=== PATIENT | female | born 1965 | race Caucasian/White ===

== ENCOUNTER 2016-05-15 15:13 | Emergency (ER) | payer OTHER ==
[2016-05-15 15:10] LABS: BASOPHIL# 0.1 X10e3 (0-0.3); BASOPHIL% 0.5 % (0-2.5); EOSINOPHIL% 0.3 % (0.0-7.0); HEMATOCRIT 41.1 % (35.0-45.0); HEMOGLOBIN 13.3 gm/dL (12.0-16.0); LYMPHOCYTE# 4.3 X10e3 (1.0-3.5); LYMPHOCYTE% 28.7 % (17.0-45.0); MEAN CELL VOLUME 82.2 FL (83-96); MEAN CORPUSCULAR HEMOGLOBIN 26.6 PG (28-34); MEAN CORPUSCULAR HGB CONC 32.4 g/dL (30-36); MEAN PLATELET VOLUME 9.2 FL (6.5-11.5); MONOCYTE# 0.8 X10e3 (0-1.0); MONOCYTE% 5.1 % (3.0-12.0); NEUTROPHIL# 9.7 X10e3 (1.5-7.1); NEUTROPHIL% 65.4 % (40-75); PLATELET COUNT 514 X10e3 (140-420); RED CELL DISTRIBUTION WIDTH 14.8 % (11.0-15.5); WHITE BLOOD COUNT 14.9 X10e3 (4.0-10.5)
[~2016-05-15 15:13] MED LIST: ALBUTEROL20 ml INH; AMITRIPTYLINE100 MG PO; ASPIRIN EC81 M1 PO; BACLOFEN10 MG PO; CELEBREX PO; CELECOXIB100 MG PO; DULOXETINE HCL60 M1 PO; DULOXETINE HCL60 MG PO; FLEXERIL10 M1 PO; FLEXERIL10 MG PO; FLOVENT DI50 MCG/DIS INH; FUROSEMIDE40 MG PO; GLIPIZIDE10 MG PO; HYDROCHLOROTHIA25 MG PO; HYDROXYZINE HCL50 MG PO; KEPPRA1000 MG PO; LASIX20 MG PO; LEVOTHYROXINE50 MCG PO; LIORESAL10 MG PO; LYRICA100 MG PO; METOPROLOL SUCC25 MG PO; ORUDIS75 M1 PO; PEN-VEE K PO; POTASSIUM CHLO10 ME1 PO; PRAVASTATIN SOD40 MG PO; PREDNISONE PO; PREMPRO 0.1 TAB 0.62 PO; PREMPRO 0.625-21 TAB PO; PRILOSEC20 M1 PO; PROZAC PO; RA CALCIUM PO; SYMBICORT INH; SYNTHROID PO; TRAMADOL HCL50 M1 PO; ULTRAM PO; VENTOLIN5 MG/ML INH; VISTARIL50 MG PO; ZYRTEC10 M2 PO; [UNRECOGNIZED DRUG - OTHER] PO; [UNRECOGNIZED DRUG - OTHER] PO
[2016-05-15 15:43] LABS: ALBUMIN SERUM 4.1 g/dL (3.5-5.0); BILIRUBIN, DIRECT 0.1 mg/dL (0.0-0.2); BILIRUBIN,INDIRECT 0.5 mg/dL (0.0-0.9); BILIRUBIN,TOTAL 0.6 mg/dL (0.2-2.0); BUN/CREATININE RATIO 13.84; CALCIUM SERUM 9.9 mg/dL (8.4-10.2); CREATININE SERUM 1.3 mg/dL (0.6-1.4); GLOM FILT RATE Estimated 46.3 mL/min (>60)
[2016-05-15 15:44] LABS: DIFF IND NO; POTASSIUM 2.5 mmol/L (3.5-5.1)
[2016-05-15 15:55] LABS: URINE SOURCE CLEAN CATCH
[2016-05-15 15:56] LABS: URINE APPEARANCE CLOUDY; URINE BILIRUBIN NEG (NEG); URINE BLOOD NEG (NEG); URINE COLOR YELLOW; URINE GLUCOSE NEG (NEG); URINE KETONE NEG (NEG); URINE LEUKOCYTE ESTERASE NEG (NEG); URINE NITRATE NEG (NEG); URINE PROTEIN NEG (NEG); URINE SPECIFIC GRAVITY 1.008 (1.003-1.035); URINE UROBILINOGEN 0.2 MG/DL (NEG)
[2016-05-15 16:05] LABS: CULTURE INDICATED? NO
== END 2016-05-15 16:48 | disposition home or self-care (01) ==
LOC: CED 15:13
PROVIDERS: Emergency Medicine
DX: R11.2 Nausea with vomiting, unspecified (principal); R10.9 Unspecified abdominal pain; R19.7 Diarrhea, unspecified; E87.6 Hypokalemia; K21.9 Gastro-esophageal reflux disease without esophagitis; E11.40 Type 2 diabetes mellitus with diabetic neuropathy, unspecified; I10 Essential (primary) hypertension; J44.9 Chronic obstructive pulmonary disease, unspecified; F41.9 Anxiety disorder, unspecified; F32.9 Major depressive disorder, single episode, unspecified; M54.5 Low back pain; G89.29 Other chronic pain; F17.200 Nicotine dependence, unspecified, uncomplicated
CPT/HCPCS: 36415; 80048; 80076; 81003; 83690; 84703; 85025; 96361; 96374; 96375; 99284; J2405; J2765

== ENCOUNTER → 2016-08-16 | Outpatient (CLI) | payer MEDICARE ==
--- NOTE | ~2016-08-16 | TM ---
[id number] NAME: CLYDE AGRAWAL MR#: [id number] EXAM Regular treadmill stress test. PROCEDURE Resting heart rate 104, resting blood pressure 118/86 mmHg. Baseline EKG shows normal sinus rhythm. No significant ST-T wave changes. The patient was made to exercise on a Edmund protocol. Total exercise time was 7 minutes, which was held at stage 1 because of the patient's very poor baseline exercise tolerance. No complaints of chest pain. The patient did have increased fatigue and increased shortness of breath. Maximal heart rate obtained was 181, which was 106% of the maximal predicted heart rate. Maximal blood pressure obtained was 162/[address]-T wave changes suggest of ischemia. No arrhythmias noted. CONCLUSION 1. Very poor baseline exercise tolerance for age. 2. There is no clinical, hemodynamic or EKG evidence of ischemia at low to moderate workload (106% of the maximal predicted heart rate, 4.6 METs). 3. Normal heart rate and blood pressure response. 4. Normal regular treadmill stress test with very poor baseline exercise tolerance for age. Dictated by.Pratima Goodrich M.D. TD: 08/18/2016 12:15
== END | disposition home or self-care (01) ==
LOC: CEKG 08:00
DX: R00.0 Tachycardia, unspecified (principal); I51.89 Other ill-defined heart diseases
CPT/HCPCS: 93017

== ENCOUNTER → 2016-09-04 | Outpatient (CLI) | payer MEDICARE, OTHER ==
--- NOTE | ~2016-09-04 | US128 ---
[id number] [facility]. [facility] [address]. [place], [place] [address] [id number] O MR#: [id number] Acc #: [id number] NAME: CLYDE AGRAWAL : 1965 SEX: F STUDY DATE/TIME: 09/04/2016 15:04 UNIT: [facility] ROOM: STUDY DESCRIPTION: Thyroid Attending Physician: Dominga Alexander Aprn Referring Physician: Dominga Alexander Aprn Ordering Physician: Physician Non-Staff Primary Care Physician: Dominga Alexander Aprn MEDICAL IMAGING REPORT This report is preliminary unless electronic signature is present EXAM Thyroid ultrasound, 09/04/2016. HISTORY Hypothyroidism. Patient on thyroid hormone replacement therapy for 2 years. Difficulty swallowing for 2 years with weight loss. FINDINGS The right thyroid lobe measured 4.7 cm x 1.6 cm x 2 cm, while the left lobe measured 2.8 cm x 8 mm x 8 mm. The isthmus measured 4 mm in the AP direction. There is a solitary 8 mm nodule in the mid-right thyroid lobe. The thyroid is otherwise homogeneous in echotexture. There are no masses extrinsic to the thyroid. Normal blood flow is seen throughout both thyroid lobes. IMPRESSION Solitary 8 mm nodule mid-right thyroid lobe. Dictated by... Kiko Dean M.D. THIS IS AN ELECTRONICALLY VERIFIED REPORT Kiko Dean M.D. at 09/06/2016 6:17 AM [facility]/marcin TD: 09/05/2016 10:42 JOB #: [id number] MEDICAL IMAGING REPORT Page 1 of 1 COPY
== END | disposition home or self-care (01) ==
LOC: CECH 14:08
DX: E03.9 Hypothyroidism, unspecified (principal); R00.0 Tachycardia, unspecified; I51.89 Other ill-defined heart diseases; E04.1 Nontoxic single thyroid nodule
CPT/HCPCS: 76536; 93306